=== PATIENT | female | born 1985 | race Two or more races ===

== ENCOUNTER → 2023-09-27 | Outpatient (CLI) | payer MEDICAID | END | disposition home or self-care (01) | LOC: MRI 13:29 | PROVIDERS: ATTEND Physician Assistant Surgical | DX: M51.36 Other intervertebral disc degeneration, lumbar region (principal); M47.817 Spondylosis without myelopathy or radiculopathy, lumbosacral region; M48.07 Spinal stenosis, lumbosacral region; M51.26 Other intervertebral disc displacement, lumbar region; M25.78 Osteophyte, vertebrae | CPT/HCPCS: 72148 ==